=== PATIENT | male | born 1960 | race Caucasian/White ===

== ENCOUNTER 2020-04-20 06:05 | Outpatient (CLI) | payer OTHER ==
[2020-04-20 17:58] LABS: SARS-CoV-2 MS2 Positive; SARS-CoV-2 N Gene Negative; SARS-CoV-2 S Gene Negative; SARS-CoV-2 by NAA Not Detected (NotDetected); SARS-CoV-2 orf1ab Negative
== END 2020-04-20 06:06 | disposition home or self-care (01) ==
LOC: LABBT 06:05
PROVIDERS: ATTEND Internal Medicine Gastroenterology
DX: K21.9 Gastro-esophageal reflux disease without esophagitis (principal); Z86.010 Personal history of colon polyps; Z20.828 Contact with and (suspected) exposure to other viral communicable diseases
CPT/HCPCS: 87635; U0003

== ENCOUNTER 2020-04-23 12:01 | Day surgery (SDC) | payer OTHER ==
[2020-04-21 13:53] VITALS: BMI 24.3
[~2020-04-23 12:01] MED LIST: Lidocaine 1% PF 5 ML VIAL ONE; PROPOFOL 200 MG/20 ML VIAL ONE
--- NOTE | 2020-04-23 20:27 | OP ---
DATE OF PROCEDURE: 04/23/2020 PROCEDURE PERFORMED: Colonoscopy with snare polypectomy. PREPROCEDURE DIAGNOSIS: History of colon polyps. POSTPROCEDURE DIAGNOSES: 1. Exam to cecum; good bowel preparation. 2. Mild sigmoid diverticulosis. 3. Small internal hemorrhoids. 4. Hypertrophied anal papilla. 5. Small sigmoid polyp, 3 mm in diameter, removed by cold snare technique. 6. Otherwise normal colonoscopy. PROCEDURE IN DETAIL: Written informed consent was obtained. Upon completion of the EGD, the patient was repositioned for colonoscopy. Total intravenous anesthesia was administered by Dr. Ronnie Grajeda and associates. The patient was placed in the left lateral decubitus position. A digital rectal exam revealed no abnormalities. A Pentax video colonoscope was inserted through the anal canal and advanced under direct visualization to the cecum. Position in the cecum was verified by clear identification of the appendiceal orifice and the ileocecal valve. The quality of the bowel preparation was good. Each colon segment was examined carefully as the colonoscope was slowly withdrawn from the cecum. Vascular pattern and haustral folds appeared normal. The colon was mildly redundant throughout. Occasional diverticular orifices, both small and large, were noted in the sigmoid colon. There was no evidence of diverticular hemorrhage. Also in the sigmoid colon, a 3 to 4 mm sessile polyp was identified and removed by cold snare technique. The tissue was submitted to Pathology. No other synchronous polyps were identified. In the rectum, a retroflexed view demonstrated small internal hemorrhoids and hypertrophied anal papilla. The colon was decompressed as the colonoscope was removed from the patient. There were no immediate complications. He was transferred to the Day Stay surgery area for postprocedure monitoring. RECOMMENDATIONS: 1. Await pathology results. 2. Ask the patient to call me in one week for pathology results. 3. Resume previous diet and medications. 4. Repeat colonoscopy in five years for surveillance. 5. Follow up with me as needed. Job ID: [id number]
--- NOTE | 2020-04-23 20:29 | OP ---
DATE OF PROCEDURE: 04/23/2020 PROCEDURE PERFORMED: EGD with biopsy. PREPROCEDURE DIAGNOSES: 1. Chronic reflux. 2. History of hiatal hernia repair in the distant past. POSTPROCEDURE DIAGNOSES: 1. Exam to second portion of duodenum. 2. Small sliding hiatal hernia, about 1 to 1.5 cm in length. 3. No erosive esophagitis or esophageal ulcer. 4. Normal stomach. 5. Normal duodenum. 6. Postsurgical changes in the fundus consistent with patient's surgical history. DESCRIPTION OF PROCEDURE: Written informed consent was obtained. The patient was brought to the endoscopy suite. Total intravenous anesthesia was administered by Dr. Ronnie Grajeda and associates. The patient was placed in the left lateral decubitus position. A bite block was inserted into the mouth. A Pentax video diagnostic gastroscope was introduced into the oral cavity and the esophagus was carefully intubated. The gastroscope was advanced under direct visualization to the second portion of the duodenum. Endoscopic findings revealed a small sliding hiatal hernia, approximately 1 to 1.5 cm in length. There is no evidence of esophageal stricture, esophageal ulcer or erosive esophagitis. Biopsies were obtained just proximal to the hiatal hernia for histopathology. The stomach was entered and carefully examined. This included a careful retroflexed view of the cardia and fundus, which demonstrated postsurgical changes consistent with the patient's previous hiatal hernia repair and probable fundoplication. The surgical changes appeared intact. There is no evidence of ulcer or overt gastritis. The duodenum from the bulb to the 2nd portion was then examined and appeared grossly normal. The stomach was decompressed as the endoscope was completely removed from the patient. There were no immediate complications. He was repositioned for the colonoscopy. RECOMMENDATIONS: 1. Await biopsy results. 2. Ask the patient to call me in one week for biopsy results. 3. Continue low-dose omeprazole daily as needed for reflux. 4. Antireflux lifestyle. 5. Resume previous diet and medications. 6. Follow up with GI as needed. Job ID: [id number]
== END 2020-04-23 16:10 | disposition home or self-care (01) ==
LOC: SDC 12:01
PROVIDERS: ATTEND Internal Medicine Gastroenterology
PROC: 0DB58ZX Excision of Esophagus, Via Natural or Artificial Opening Endoscopic, Diagnostic (ICD-10-PCS; principal; 2020-04-23)
PROC: 0DBN8ZX Excision of Sigmoid Colon, Via Natural or Artificial Opening Endoscopic, Diagnostic (ICD-10-PCS; principal; 2020-04-23)
DX: Z12.11 Encounter for screening for malignant neoplasm of colon (principal); D12.5 Benign neoplasm of sigmoid colon; K21.0 Gastro-esophageal reflux disease with esophagitis; K44.9 Diaphragmatic hernia without obstruction or gangrene; K57.30 Diverticulosis of large intestine without perforation or abscess without bleeding; K64.8 Other hemorrhoids; K62.89 Other specified diseases of anus and rectum; Z86.010 Personal history of colon polyps; Z79.899 Other long term (current) drug therapy
CPT/HCPCS: 88305; 88312; 88313; J2704

== ENCOUNTER 2020-11-30 16:06 | Outpatient (CLI) | payer OTHER | END 2020-11-30 16:07 | disposition home or self-care (01) | LOC: BICCT 16:06 | PROVIDERS: ATTEND Family Medicine | DX: R10.9 Unspecified abdominal pain (principal) | CPT/HCPCS: 74150 ==

== ENCOUNTER 2022-09-16 19:00 | Outpatient (CLI) | payer BC | END 2022-09-16 19:01 | disposition home or self-care (01) | LOC: SLEEPLAB 19:00 | PROVIDERS: ATTEND Family Medicine | DX: G47.33 Obstructive sleep apnea (adult) (pediatric) (principal); R53.83 Other fatigue; K21.9 Gastro-esophageal reflux disease without esophagitis; R06.83 Snoring; I10 Essential (primary) hypertension | CPT/HCPCS: 95810 ==

== ENCOUNTER 2023-02-15 19:30 | Outpatient (CLI) | payer BC | END 2023-02-15 19:31 | disposition home or self-care (01) | LOC: SLEEPLAB 19:30 | PROVIDERS: ATTEND Family Medicine | DX: G47.33 Obstructive sleep apnea (adult) (pediatric) (principal); R53.83 Other fatigue; K21.9 Gastro-esophageal reflux disease without esophagitis; R06.83 Snoring; I10 Essential (primary) hypertension; G47.10 Hypersomnia, unspecified; F32.A Depression, unspecified; G47.00 Insomnia, unspecified; G47.61 Periodic limb movement disorder | CPT/HCPCS: 95811 ==